=== PATIENT | female | born 2000 | race Caucasian/White ===

== ENCOUNTER 2020-02-17 11:08 | Outpatient (CLI) | payer OTHER, SELFPAY ==
--- NOTE | ~2020-02-17 | US_ITS ---
EXAMINATION: US soft tissue UE LT DATE: 02/17/2020 12:15 INDICATION: Left upper limb Nexplanon. TECHNIQUE: Multiple grayscale and Doppler ultrasound images of the left upper arm were obtained. COMPARISON: Left humerus radiographs 02/17/2020 FINDINGS: The public health technologist and I were unable to localize the implant. IMPRESSION: 1. Implant not visualized. Consider fluoroscopy for localization. Reviewed, dictated and finalized at location A.
--- NOTE | ~2020-02-17 | XR_ITS ---
EXAMINATION: XR humerus LT INDICATION: Unable locate contraceptive device TECHNIQUE: Two views of the left humerus are obtained. COMPARISON: None available FINDINGS: There is a 4.3 cm linear radiopaque density projecting in the anteromedial soft tissues ove rlying the mid humerus. The visualized osseous structures are normal. Bone alignment at the elbow and shoulder is normal. IMPRESSION: 1. Linear radiopaque density projecting in the anterior medial soft tissues overlying the mid humerus , likely representing the contraceptive device in question. Reviewed, dictated and finalized at location B. IMPRESSION: 1. Linear radiopaque density projecting in the anterior medial soft tissues ove rlying the mid humerus, likely representing the contraceptive device in [facility]
== END 2020-02-17 11:09 | disposition home or self-care (01) ==
PROVIDERS: PCP Pediatrics; Visit Provider Obstetrics & Gynecology
DX: M79.89 Other specified soft tissue disorders (principal)
CPT/HCPCS: 73060; 76882

== ENCOUNTER 2020-02-18 01:08 | Outpatient (CLI) | payer OTHER, SELFPAY ==
[2020-02-18 19:19] LABS: SARS-CoV-2 RNA PCR Negative
== END 2020-02-18 01:09 | disposition home or self-care (01) ==
LOC: ANHCOVIDDT 01:08
PROVIDERS: PCP Pediatrics; Visit Provider Obstetrics & Gynecology
DX: Z01.818 Encounter for other preprocedural examination (principal); Z11.59 Encounter for screening for other viral diseases
CPT/HCPCS: 87635; C9803; U0003

== ENCOUNTER 2020-02-20 02:43 | Day surgery (SDC) | payer OTHER, SELFPAY ==
[2020-02-17 15:49] VITALS: BMI 20.9
--- NOTE | 2020-02-18 12:52 | P.HP_ITS ---
H&P: HPI History of Present Illness Chief complaint: misplaced nexplanon Narrative: Ankit Peña is a 19 year old female 0 who is admitted for removal of a lost Nexplanon. Attempt was made to remove in office to be removed. Review of Systems Review of Systems: All systems reviewed & are unremarkable except as noted in HPI and below PMFSH Family History Family History Mother Family history of multiple sclerosis Social History Social History Smoking status: Never smoker Second hand tobacco smoke exposure: Yes Alcohol intake: never Spiritual care concerns: No Meds Home Medications and Allergies Home Medications Medication Instructions Recorded Confirmed Type melatonin 3 mg PO HS 02/17/20 02/17/20 History Allergies Allergy/AdvReac Type Severity Reaction Status Date / Time gluten Allergy Unknown CELIAC Verified 02/17/20 15:50 DISEASE Exam Const: General: no acute distress Eyes: General: appearance normal, both eyes and all related structures Neck: Neck: supple and no JVD Thyroid: thyroid normal Resp: Effort & Inspection: normal respiratory effort Auscultation: clear to auscultation bilaterally Cardio: Rate: regular rate Rhythm: regular rhythm GI: Inspection: non-distended GI Palp: Yes Soft to palpation, No Tenderness to palpation present (GI) and No Guarding due to palpation present (GI) Auscultation: normal bowel sounds : General: Yes bladder normal to palpation External Female Exam: normal external appearance Speculum Exam - Vagina: normal vaginal discharge and No vaginal bleeding Speculum Exam - Cervix: nontender Bimanual exam- vagina & uterus: bladder normal to palpation and No Cervical tenderness present OB/ external & speculum: No vaginal bleeding Skin: General skin exam: no rashes or lesions noted Extrem: General: normal to inspection and no edema Psych: Mental Status: mental status grossly normal Affect: normal affect Assessment and Plan Additional Plan Impression lost Nexplanon Plan: removal of lost nexplanon
[2020-02-20] VITALS (10 sets, daily range): BP systolic 113–151; BP diastolic 60–91; PULSE 49–104; RESP 12–16; TEMP 36.3–36.6; O2SAT 97–100; BMI 20.6
--- NOTE | ~2020-02-20 | XR_ITS ---
EXAMINATION: XR fluoroscopy <1hr DATE: 02/20/2020 10:54 INDICATION: Left upper arm Nexplanon removal. TECHNIQUE: 2 degenerative fluoroscopic views of the left upper limb were obtained. I was not present. Fluoroscopy exposure time was 494 seconds. COMPARISON: Left humerus radiographs 02/17/2020 FINDINGS: The first image demonstrates a linear implant in the upper. The second image demonstrates a bsence of the implant. IMPRESSION: 1. Left upper arm implant removal. Reviewed, dictated and finalized at location A.
--- NOTE | 2020-02-20 06:43 | WPDHPUPDATE1 ---
History and Physical Update Update Date/Time: 02/20/20 06:43 History and Physical has been reviewed, including an updated exam of the patient. There are NO changes in the patient's condition. Risks, benefits, and alternatives have been discussed and questions answered. Patient agrees to proceed with procedure.
[2020-02-20] MEDS: LACTATED RINGERS 1,000 ML 30 ML IV CONT (09:00)
--- NOTE | 2020-02-20 09:21 | SUR.PREOP ---
0840; PT STATES SHE SMOKES MARIJUANA DAILY. ALTHOUGH SHE DID NOT USE TODAY
--- NOTE | 2020-02-20 09:41 | P.PNAN_ITS ---
Anes - Initial Pre Proc Eval Procedure: Operation Date: 02/20/20 10:30 Proposed Procedures p Fluoroscopic Guided Nexplanon Removal Left Upper Arm - Live Kendall MD Date/Time: 02/20/20 09:41 Surgeon: Live Kendall MD Pre Op Diagnosis: misplaced nexplanon Patient Data Age: 19 Gender: F Height: 5 ft 3 in Weight: 52.9 kg Last Vital Signs Temp 97.8 F 02/20/20 09:10 Pulse 104 H 02/20/20 09:10 Resp 16 02/20/20 09:10 BP 142/89 H 02/20/20 09:10 Pulse Ox 100 02/20/20 09:10 Allergies Allergy/AdvReac Type Severity Reaction Status Date / Time gluten Allergy Unknown CELIAC Verified 02/20/20 08:49 DISEASE Home Medications Medication Instructions Recorded Confirmed Type melatonin 3 mg PO HS 02/17/20 02/20/20 History hydrocodone-acetaminophen [[place]] 1 tablet PO Q4H PRN #20 tablet 02/20/20 Rx Patient hx anesthesia problems: none Family hx anesthesia problems: none PMFSH Past Medical History Medical History (Updated 02/19/20 @ 12:11 by Rainer Briceño MD) Anxiety Family History Family History Mother Family history of multiple sclerosis Social History Social History Smoking status: Never smoker Second hand tobacco smoke exposure: Yes Alcohol intake: never Spiritual care concerns: No Anes - Eval Final PreProcedure Day of Procedure 02/20/20 09:41 Patient weight: normal Heart: regular rate and rhythm Lungs: clear to auscultation Airway: Mallampati scale class II Neurological: alert and oriented Last oral intake: >/= 8 hours ASA classification: II Emergent: no Anesthetic plan: proceed Anesthesia type and monitoring: general LMA and standard monitoring Informed Consent: The patient's anesthetic plan and its attendant risks and benefits were discussed with the patient/family/POA. Questions were solicited and answers provided to the satisfaction of the patient/family/POA.
--- NOTE | 2020-02-20 10:45 | PM.PROC ---
Procedure Note - Detailed Date of procedure: 02/20/20 Pre-op diagnosis: misplaced nexplanon Surgeon: Live Kendall MD postop diagnosis: Misplaced maximum Procedure: Fluoroscopic assisted removal of Nexplanon Anesthesia: Local and IV sedation EBL: 5Cc Complications: None Findings: Nexplanon in expected position with a fair amount of scar tissue Description of procedure: Patient was prepped draped in normal sterile fashion placed in the supine position. Under excellent IV sedation the left antecubital area was swabbed with Betadine instilled 1% xylocaine anesthesia. A small puncture wound was made with 11 blade and under fluoroscopic guidance the Nexplanon was removed in toto is had a large amount of scar tissue and but there was minimal blood loss and was a relatively simple procedure. The the patient was awakened and went to recovery in satisfactory condition. All sponge, needle, instrument counts were correct. There were no complications
== END 2020-02-20 13:10 | disposition home or self-care (01) ==
PROVIDERS: PCP Pediatrics; Visit Provider Obstetrics & Gynecology
PROC: (CPT 11982; principal; 2020-02-20 10:30)
DX: T85.628A Displacement of other specified internal prosthetic devices, implants and grafts, initial encounter (principal); Y84.8 Other medical procedures as the cause of abnormal reaction of the patient, or of later complication, without mention of misadventure at the time of the procedure
CPT/HCPCS: 11982; 76000; A9270; J1100; J2250; J2405; J2704; J3010; J7120

== ENCOUNTER 2023-06-25 14:20 | Outpatient (CLI) | payer BC, SELFPAY ==
[2023-06-29 16:53] LABS: NIL 0.02 IU/mL; Quantiferon TB Plus, 1T NEGATIVE (NEGATIVE)
== END 2023-06-25 14:21 | disposition home or self-care (01) ==
LOC: ANHGOSHLAB 14:21
PROVIDERS: PCP Pediatrics; Visit Provider Nurse Practitioner
DX: Z23 Encounter for immunization (principal)
CPT/HCPCS: 36415; 86480

== ENCOUNTER 2023-07-13 00:58 | Emergency (ER) | payer BC, SELFPAY ==
[2023-07-13 01:04] VITALS: BP 134/92; PULSE 130; RESP 16; TEMP 36.8; O2SAT 98
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
[2023-07-13 01:08] VITALS: BP 134/92; PULSE 131; RESP 19; O2SAT 97
[2023-07-13 01:21] LABS: Basophils Absolute Auto 0.1 K/mm3 (0.0-0.1); Basophils Percent Auto 0.6 % (0.2-1.2); Eosinophils Percent Auto 0.4 % (0-4.4); Hematocrit 42.9 % (37.0-47.0); Hemoglobin 14.3 g/dL (12.0-15.0); Immature Granulocyte Absolute 0.03 K/mm3 (0.00-0.031); Immature Granulocyte Percent A 0.4 % (0-0.5); Lymphocytes Percent Auto 21.8 % (18.3-44.2); Mean Corpuscular HGB Conc 33.3 g/dl (32-36); Mean Corpuscular Hemoglobin 30.3 pg (26-34); Mean Corpuscular Volume 90.9 fl (80-100); Mean Platelet Volume 11.2 fl (7.4-10.4); Monocytes Absolute Auto 0.8 K/mm3 (0.1-0.6); Monocytes Percent Auto 9.7 % (2.6-8.5); Neutrophils Absolute Auto 5.6 K/mm3 (1.3-6.7); Neutrophils Percent Auto 67.1 % (45.5-73.1); Platelet Count Result 262 k/mm3 (150-375); Red Blood Count 4.72 M/mm3 (4.2-5.4); Red Cell Distribution Width 13.2 % (11.5-14.5); White Blood Count 8.3 K/mm3 (4.5-10.0)
[2023-07-13 01:39] LABS: Acetaminophen < 10 ug/mL (10-30); Ethanol 239 mg/dL (<10); Salicylate < 1.0 mg/dL (2-20)
[2023-07-13 01:40] LABS: Alanine Aminotransferase 26 U/L (6-35); Albumin Level 5.2 g/dL (3.5-5.1); Alkaline Phosphatase 81 U/L (38-126); Anion Gap 16 mmol/L (8-16); Aspartate Amino Transferase 31 U/L (14-36); Bilirubin,Total 0.4 mg/dL (0.2-1.3); Blood Urea Nitrogen 15 mg/dL (7-17); Calcium 9.6 mg/dL (8.4-10.2); Carbon Dioxide 18 mmol/L (22-30); Chloride 113 mmol/L (98-107); Estimated CRCL calculation 107 ml/min; Estimated Glomerular Filt Rate > 60; Glucose 133 mg/dL (65-110); Potassium 3.8 mmol/L (3.4-5.0); Sodium 147 mmol/L (137-145)
[2023-07-13 01:41] LABS: Magnesium 2.1 mg/dL (1.6-2.3)
[2023-07-13 01:58] LABS: Influenza A QL RT-PCR Negative (Negative); Influenza B QL RT-PCR Negative (Negative); RSV RNA, RT-PCR Negative (Negative); SARS-CoV-2 RNA PCR Negative (Negative)
[2023-07-13] MEDS: SODIUM CHLORIDE 0.9% IV 1,000 ML 999 ML IV CONT (02:06)
[2023-07-13 02:30] VITALS: BP 114/96; PULSE 120; RESP 16; O2SAT 100
[2023-07-13 02:40] LABS: Appearance Urine Clear (Clear); Bacteria Urine None Seen /hpf; Bilirubin Urine Negative (Negative); Blood Urine Negative (Negative); Color Urine Yellow (Yellow); Glucose Urine UA Negative (Negative); Ketones Urine 1+ mg/dL (Negative); Leukocyte Esterase Ur Negative LEU/UL (Negative); Nitrate Urine Negative (Negative); Non Pathogenic Casts 0-2; Protein Urine 2+ mg/dL (Negative); RBC Urine 0-2 /hpf (0-2); Specific Grav Ur 1.022 (1.001-1.035); Squamous Epithelial Cell Urine Occasional /hpf (Few); Urobilinogen Urine 0.2 mg/dL (<2.0); WBC Urine 0-5 /hpf
[2023-07-13 02:44] LABS: Add Urine Microscopic? YES
[2023-07-13 04:46] VITALS: BP 128/82; PULSE 112; RESP 16; O2SAT 98
[2023-07-13 05:38] LABS: Acetaminophen < 10 ug/mL (10-30); Ethanol 112 mg/dL (<10)
[2023-07-13 06:05] VITALS: BP 120/82; PULSE 108; RESP 16; O2SAT 100
== END 2023-07-13 06:06 | disposition home or self-care (01) ==
PROVIDERS: Emergency Provider Emergency Medicine; PCP Pediatrics
DX: F10.129 Alcohol abuse with intoxication, unspecified (principal); S00.83XA Contusion of other part of head, initial encounter; S10.93XA Contusion of unspecified part of neck, initial encounter; Z11.52 Encounter for screening for COVID-19; Y90.5 Blood alcohol level of 100-119 mg/100 ml; X58.XXXA Exposure to other specified factors, initial encounter
CPT/HCPCS: 36415; 80053; 80307; 81001; 81025; 83735; 84443; 85025; 87637; 96360; 96361; 99283; J7030